=== PATIENT | female | born 1945 | race Caucasian/White ===

== ENCOUNTER 2016-09-25 14:30 | Emergency (ER) | payer MEDICARE ==
[2016-09-25 15:39] VITALS: BP 162/71
--- NOTE | 2016-09-25 16:47 | PHYS DOC ---
Past Medical History Past Medical History: CHF, Hypertension Past Surgical History: No Surgical History Additional Information: Nonsmoker Alcohol Use: None Drug Use: None Adult General Chief Complaint Chief Complaint: LOWER EXT PAIN HPI HPI Patient is a 71 year old female who presents with left lower extremity pain for one week. She states that the pain is constant. It is worse with activity, including walking, climbing stairs, getting in and out of bed, or any out of her car. She denies any alleviating factors. She denies any injury to the leg. She has not noted any swelling or redness to the leg. She has tried applying icy hot without improvement in her pain. She has not taken any pain medications at home. She has a history of hypertension and CHF for which she sees Dr. Wihte. She does not have a PCP. Review of Systems Review of Systems Constitutional: Denies fever or chills. [] Respiratory: Denies cough or shortness of breath. [] Cardiovascular: Denies chest pain, palpitations or edema. [] Musculoskeletal: Denies back pain or joint pain. Reports left calf pain. Integument: Denies rash or skin lesions. Denies erythema or warmth of the left lower extremity. Neurologic: Denies focal weakness or sensory changes. [] Allergies Allergies Allergies Coded Allergies Type Severity Reaction Last Updated Verified No Known Drug Allergies 02/07/14 No Physical Exam Physical Exam Constitutional: Well developed, well nourished, no acute distress, non-toxic appearance. [] HENT: Normocephalic, atraumatic, oropharynx moist. [] Eyes: PERRLA, EOMI, conjunctiva normal, no discharge. [] Skin: Warm, dry, no erythema, no rash. There are no external signs of injury. There is no erythema or warmth of the left lower extremity. Extremities: Left posterior calf tenderness, ROM intact, no edema. 2+ DP and PT pulses. Less than 2 second capillary refill in the toes. Light touch sensation intact. There is no tenderness or pain with range of motion of the right ankle or knee. Neurologic: Alert and oriented X 3, normal motor function, normal sensory function, no focal deficits noted. [] Psychologic: Affect normal, judgement normal, mood normal. [] EKG EKG [] Radiology/Procedures Radiology/Procedures REASON: atruamatic left calf pain x1 week PROCEDURE: VENOUS LOWER EXTREMITY LEFT Exam performed: Left lower extremity venous Doppler. Clinical Indication: Left leg pain Date of Service:09/15/16 Comparison : None available Discussion: Multiple longitudinal and transverse high resolution real-time images of the venous system of left lower extremity were obtained with color and Doppler sampling and spectral analysis. The common femoral, superficial femoral, popliteal and proximal calf veins are all patent and demonstrate normal flow and compressibility. Normal respiratory phasicity and augmentation is present. Impression: Normal color duplex ultrasound of the venous system of left lower extremity. Course & Med Decision Making Course & Med Decision Making Pertinent Labs and Imaging studies reviewed. (See chart for details) Patient is a 71-year-old female who presents with left lower extremity pain without injury for one week. On exam, there is no swelling, erythema, or warmth. There is no bony or joint tenderness. She is neurovascularly intact. Ultrasound does not show any DVT. The patient is discharged home with prescription for naproxen. She is instructed to follow-up with orthopedics if the pain continues. Return precautions were discussed. She verbalizes understanding and agrees with plan. Dragon Disclaimer Dragon Disclaimer This electronic medical record was generated, in whole or in part, using a voice recognition dictation system. Departure Departure Impression: Primary Impression: Lower extremity pain, posterior Disposition: 01 HOME, SELF-CARE Condition: STABLE Referrals: PEÑA DOUGHERTY II, MD Patient Instructions: Leg Cramps Additional Instructions: Your ultrasound today did not show any blood clots. Please take the prescribed medication as directed to help with your pain. Please follow up with the orthopedic doctor listed below if your pain continues. Return to the emergency department if you have increased pain, swelling, redness , or warmth of the leg, shortness of breath, chest pain, or other new or concerning symptoms. Scripts Naproxen (Naprosyn)500 Mg Tablet1 Tab PO BID #20 TAB Prov:LESLIE MEDLEY 09/25/16 Problem Qualifiers Primary Impression: Lower extremity pain, posterior Laterality: left Qualified Code: M79.605 - Pain in left leg LESLIE MEDLEY Sep 25, 2016 16:47
--- NOTE | 2016-09-25 16:51 | RAD ---
Exam performed: Left lower extremity venous Doppler. Clinical Indication: Left leg pain Date of Service:09/15/16 Comparison : None available Discussion: Multiple longitudinal and transverse high resolution real-time images of the venous system of left lower extremity were obtained with color and Doppler sampling and spectral analysis. The common femoral, superficial femoral, popliteal and proximal calf veins are all patent and demonstrate normal flow and compressibility. Normal respiratory phasicity and augmentation is present. Impression: Normal color duplex ultrasound of the venous system of left lower extremity.
[2016-09-25] MEDS ORDERED: NAPR500T PO (17:11)
== END 2016-09-25 17:18 | disposition home or self-care (01) ==
LOC: ER 14:30
DX: M79.662 Pain in left lower leg (principal); I11.0 Hypertensive heart disease with heart failure; I50.9 Heart failure, unspecified
CPT/HCPCS: 93971; 99284-25

== ENCOUNTER → 2017-02-08 | Outpatient (CLI) | payer MEDICARE ==
[2016-09-30 17:20] VITALS: BP 149/71
[~2017-02-08] MED LIST: HYDR-2758 PO; NAPR500T PO
--- NOTE | 2017-02-08 11:21 | CARD ---
APPROVED REPORT EXAM: Two-dimensional and M-mode echocardiogram with Doppler and color Doppler. Other Information Quality : GoodHR: 96bpm Rhythm : Atrial Fibrillation INDICATION Atrial Fibrillation RISK FACTORS Hypertension 2D DIMENSIONS RVDd2.4 (2.9-3.5cm)Left Atrium(2D)4.3 (1.6-4.0cm) IVSd0.8 (0.7-1.1cm)Aortic Root(2D)2.6 (2.0-3.7cm) LVDd3.8 (3.9-5.9cm)LVOT Diameter2.1 (1.8-2.4cm) PWd0.9 (0.7-1.1cm)LVDs2.8 (2.5-4.0cm) FS (%) 26.8 %SV33.3 ml LVEF(%)53.1 (>50%) Aortic Valve AoV Peak Jb.113.4cm/sAoV VTI23.4cm AO Peak GR.5.1mmHgLVOT Peak Jb.110.1cm/s AO Mean GR.3mmHgAVA (VMAX)3.43cm2 Mitral Valve MV E Peak Gr.5mmHgMV E Mean Gr.3mmHg Pulmonary Valve PV Peak Wogczwua969.6cm/s Tricuspid Valve TR P. Lulyuerb409ze/sTR Peak Gr.44mmHg Pulmonary Vein S1 Xzeldibq73.5cm/s LEFT VENTRICLE The left ventricle is normal size. There is normal left ventricular wall thickness. The left ventricu lar systolic function is normal. The Ejection Fraction is 55%. There is normal LV segmental wall carmencita on. Atrial fibrillation noted, unable to adequately assess left ventricular diastolic function. RIGHT VENTRICLE The right ventricle is normal size. There is normal right ventricular wall thickness. The right ventr icular systolic function is normal. ATRIA The left atrium is moderately dilated. The right atrium is mildly dilated. The interatrial septum is intact with no evidence for an atrial septal defect or patent foramen ovale as noted on 2-D or Dopple r imaging. AORTIC VALVE The aortic valve is mildly sclerotic. The aortic valve is trileaflet. Doppler and Color Flow revealed no significant aortic regurgitation. There is no significant aortic valvular stenosis. MITRAL VALVE Mitral annular calcification is mild. The mitral valve leaflets are thickened. There is no evidence o f mitral valve prolapse. There is no mitral valve stenosis. Doppler and Color Flow revealed mild mitr al regurgitation. TRICUSPID VALVE Doppler and Color Flow revealed moderate tricuspid regurgitation. The pulmonary artery systolic press ure is estimated at 47 mmHg. There is moderate pulmonary hypertension. PULMONIC VALVE Doppler and Color Flow revealed no pulmonic valvular regurgitation. There is no pulmonic valvular randolph nosis. GREAT VESSELS The aortic root is normal in size. The ascending aorta is normal in size. The pulmonary artery is nor mal. The IVC is normal in size and collapses >50% with inspiration. PERICARDIAL EFFUSION There is no evidence of significant pericardial effusion. Critical Notification Critical Value: No <Conclusion> The left ventricular systolic function is normal. The Ejection Fraction is 55%. There is normal LV segmental wall motion. The left atrium is moderately dilated. Mild mitral regurgitation. Moderate tricuspid regurgitation. The pulmonary artery systolic pressure is estimated at 47 mmHg. There is moderate pulmonary hypertension. There is no evidence of significant pericardial effusion.
== END | disposition home or self-care (01) ==
LOC: ECHO 08:40
PROVIDERS: ATTEND Internal Medicine Cardiovascular Disease
DX: I48.91 Unspecified atrial fibrillation (principal); I08.1 Rheumatic disorders of both mitral and tricuspid valves; I27.2 Other secondary pulmonary hypertension; I10 Essential (primary) hypertension
CPT/HCPCS: 93306

== ENCOUNTER → 2017-03-16 | Outpatient (CLI) | payer MEDICARE ==
[2016-09-30 17:20] VITALS: BP 149/71
--- NOTE | 2017-03-16 13:54 | RAD ---
DATE: 03/16/2017 EXAM: DIGITAL SCREEN BILAT W/CAD HISTORY: Screening COMPARISON: One year earlier This study was interpreted with the benefit of Computerized Aided Detection (CAD). FINDINGS: Breast Density: SCATTERED The breast parenchyma shows scattered fibroglandular densities. Breast parenchyma level B. There has not been a significant change in the appearance of the breasts compared to the previous exam. Vascular calcification is noted IMPRESSION: Benign findings BI-RADS CATEGORY: 2 BENIGN FINDING(S) RECOMMENDED FOLLOW-UP: 12M 12 MONTH FOLLOW-UP PQRS compliance statement: Patient information was entered into a reminder system with a target due date 03/16/2018 for the next mammogram. Mammography is a sensitive method for finding small breast cancers, but it does not detect them all and is not a substitute for careful clinical examination. A negative mammogram does not negate a clinically suspicious finding and should not result in delay in biopsying a clinically suspicious abnormality. "Our facility is accredited by the [employer] Mammography Program."
== END | disposition home or self-care (01) ==
LOC: MAMMO 08:00
PROVIDERS: ATTEND Family Medicine
DX: Z12.31 Encounter for screening mammogram for malignant neoplasm of breast (principal)
CPT/HCPCS: G0202; 77067

== ENCOUNTER 2017-03-30 09:51 | Day surgery (SDC) | payer MEDICARE ==
[~2017-03-30 09:51] MED LIST changes: +HYDROmorphone 2 MG/ML VIAL IV PRN; +IV RINGERS,LACTATED 1000ML 1,000 ML IV SCH; +LIDOCAINE 1% 1 ML SYRINGE. ID PRN; +MORPHINE SULFATE 2 MG/ML DISP.SYRIN. IV PRN; +ONDANSETRON PF 4 MG/2 ML VIAL. IV PRN; +PROCHLORPERAZINE 10 MG/2 ML VIAL. IV PRN; +fentaNYL PF VIAL 100 MCG/2 ML VIAL IV PRN
[2017-03-30] MEDS ORDERED: POTA10TA5 PO (10:37)
[2017-03-30] MEDS ORDERED: APIX5TAB PO (10:37)
[2017-03-30] MEDS ORDERED: DILT120C71 PO (10:37)
[2017-03-30] MEDS ORDERED: LOSA25TA4 PO (10:37)
--- NOTE | 2017-03-30 10:41 | EKG ---
[facility] [address] [place] [address] Test Date: 2017-03-30 Test Time: 10:43:29 Pat Name: GILDA CHANDLER Department: Room: Gender: F Dining Server: GREG : 1945 Requested By: DAMASO LOPES Order Number: [id number] Reading MD: Marco A Rodriguez Measurements Intervals [place] Rate: 118 P: 90 KS: 108 QRS: 78 QRSD: 104 T: 107 QT: 356 QTc: 501 Interpretive Statements SINUS TACHYCARDIA INCOMPLETE RIGHT BUNDLE BRANCH BLOCK T ABNORMALITY IN INFERIOR LEADS ABNORMAL ECG RI6.01 Compared to ECG 12/26/2012 14:46:22 T-wave abnormality now present Sinus rhythm no longer present Prolonged QT interval no longer present Electronically Signed On 03-30-2017 16:52:33 CDT by Marco A Rodriguez
[2017-03-30] MEDS ORDERED: PROPOFOL 20 ML IV ONE (12:25)
[2017-03-30 13:05] VITALS: BP 152/81
--- NOTE | 2017-03-30 13:18 | EKG ---
[facility] [address] [place] [address] Test Date: 2017-03-30 Test Time: 12:54:50 Pat Name: GILDA CHANDLER Department: Room: Gender: F Senior Strategy Manager: SANJEEV : 1945 Requested By: MARKELL REYNOLDS Order Number: [id number] Reading MD: Measurements Intervals [place] Rate: 82 P: 68 KS: 156 QRS: 79 QRSD: 98 T: 73 QT: 406 QTc: 478 Interpretive Statements SINUS RHYTHM QRS(T) CONTOUR ABNORMALITY CONSIDER INFERIOR MYOCARDIAL DAMAGE PROLONGED QT POSSIBLY ABNORMAL ECG RI6.01 No previous ECG available for comparison
--- NOTE | 2017-03-30 16:18 | PDOC4 ---
Operative Note Operative Note Procedure. Cardioversion. The patient is a pleasant 72-year-old female who was found to be in atrial fibrillation approximately 6 weeks ago. She was started on anticoagulation and scheduled for outpatient cardioversion. Medication compliance including greater than 4 weeks of anticoagulation were confirmed with the patient. Risks and benefits of the procedure were discussed with the patient and she agreed to proceed. The anesthesiology service provided appropriate sedation. The patient was cardioverted from atrial fib/flutter to normal sinus rhythm with one 200 J synchronized discharge. She awoke normally from her sedation. The procedure was discussed with the patient and her family. She will be continued on present medications including anticoagulation and followed up in the office in 3-4 weeks. Conclusions. Successful cardioversion of atrial fibrillation/flutter to normal sinus rhythm. MARKELL REYNOLDS MD Mar 30, 2017 16:18
== END 2017-03-30 13:23 | disposition home or self-care (01) ==
LOC: SURG 09:51
PROVIDERS: ATTEND Internal Medicine Cardiovascular Disease
DX: I48.91 Unspecified atrial fibrillation (principal); I10 Essential (primary) hypertension; F32.9 Major depressive disorder, single episode, unspecified; E03.9 Hypothyroidism, unspecified; Z90.49 Acquired absence of other specified parts of digestive tract; Z86.39 Personal history of other endocrine, nutritional and metabolic disease
CPT/HCPCS: 92960; 93005; J2704

== ENCOUNTER → 2018-03-06 | Outpatient (CLI) | payer MEDICARE | END | disposition home or self-care (01) | LOC: MAMMO 12:48 | DX: Z12.31 Encounter for screening mammogram for malignant neoplasm of breast (principal) | CPT/HCPCS: 77063; 77067 ==

== ENCOUNTER 2018-06-07 08:46 | Emergency (ER) | payer MEDICARE ==
[~2018-06-07] VITALS: Ht 170.2 cm; Wt 91.6 kg
[~2018-06-07 08:46] MED LIST changes: +APIX5TAB PO; +DILT120C71 PO; -HYDROmorphone 2 MG/ML VIAL IV PRN; -IV RINGERS,LACTATED 1000ML 1,000 ML IV SCH; -LIDOCAINE 1% 1 ML SYRINGE. ID PRN; +LOSA25TA5 PO; -MORPHINE SULFATE 2 MG/ML DISP.SYRIN. IV PRN; +NAPR-683 PO; -NAPR500T PO; -ONDANSETRON PF 4 MG/2 ML VIAL. IV PRN; +POTA10TA12 PO; -PROCHLORPERAZINE 10 MG/2 ML VIAL. IV PRN; -fentaNYL PF VIAL 100 MCG/2 ML VIAL IV PRN
[2018-06-07 09:19] VITALS: BP 163/81
[2018-06-07] MEDS ORDERED: FAMOTIDINE 20 MG TABLET. PO ONE (09:45)
--- NOTE | 2018-06-07 10:04 | PHYS DOC ---
Past Medical History Past Medical History: A-Fib, CHF, Hypertension Past Surgical History: Other Additional Past Surgical Histo: Lt breast lumpectomy Alcohol Use: None Drug Use: None Adult General Chief Complaint Chief Complaint: EYE PROBLEMS HPI HPI 73-year-old female presents to ER with complaints of swelling to her left upper eyelid which she woke up with this morning. Patient denies any known injury. Patient denies any eye pain, eye drainage, eye redness, or change in vision. Patient reports she wears corrective glasses which she left home this morning. She denies any other sxs including sore throat, sinus drainage, earache, fever/ chills, or cough. She denies taking any allergy or antihistamine medications prior to arrival. Staff reported they did obtain vision acuity however patient reports her vision is blurred when she does not have her glasses on with no acute changes currently. Review of Systems Review of Systems Constitutional: Denies fever or chills [] Eyes: Denies change in visual acuity, redness, or eye pain. Reports left upper eyelid swelling denying drainage or photosensitivity HENT: Denies nasal congestion or sore throat [] Respiratory: Denies cough or shortness of breath [] Cardiovascular: No additional information not addressed in HPI [] GI: Denies abdominal pain, nausea, vomiting : Denies dysuria or hematuria [] Musculoskeletal: Denies back/neck pain or joint pain [] Integument: Denies rash or skin lesions. Reports swelling left upper eyelid Neurologic: Denies headache, focal weakness or sensory changes [] All other systems were reviewed and found to be within normal limits, except as documented in this note. Allergies Allergies Allergies Coded Allergies Type Severity Reaction Last Updated Verified No Known Drug Allergies 03/30/17 No Physical Exam Physical Exam Constitutional: Well developed, well nourished, no acute distress, non-toxic appearance. [] HENT: Normocephalic, atraumatic, bilateral ears normal, mucous membranes pink/ moist, no oral exudates, nose normal. [] Eyes: 3mm PERRLA, EOMI- no pain with eye movement, no nystagmus, conjunctiva normal, no discharge.Swelling to lt upper/inner eyelid with no erythema/ drainage. Sclera clear bilat. No tenderness on eyelid palp. Neck: Normal range of motion, no tenderness, supple, no gross adenopathy Cardiovascular: Heart rate 94 Lungs & Thorax: Resp. equal/nonlabored Abdomen: soft, no tenderness Skin: Warm, dry, no erythema, no rash. [] Back: No tenderness, full ROM Extremities: No tenderness, no cyanosis, no clubbing, ROM intact, no edema. [] Neurologic: Alert and oriented X 3, normal motor function, normal sensory function, no focal deficits noted. [] Psychologic: Affect normal, judgement normal, mood normal. [] Current Patient Data Vital Signs Vital Signs Date Time Temp Pulse Resp B/P (MAP) Pulse Ox O2 Delivery O2 Flow Rate FiO2 06/07/18 09:19 97.5 94 20 163/81 (108) 96 Room Air 97.5 EKG EKG [] Radiology/Procedures Radiology/Procedures [] Course & Med Decision Making Course & Med Decision Making [] Dragon Disclaimer Dragon Disclaimer This electronic medical record was generated, in whole or in part, using a voice recognition dictation system. Departure Departure Impression: Primary Impression: Swelling of eyelid Disposition: HOME, SELF-CARE Condition: STABLE Referrals: GALLITO LEONARDO MD (PCP) Patient Instructions: Allergies, Generic Additional Instructions: You can use cool compress to left eyelid for swelling- apply every 3-4 hours for 20-30 minutes at a time. Monitor eyelid for worsening symptoms. Follow up with primary doctor in next 2-3 days if symptoms persist or with any concerns. You can try over the counter medications for allergies- zyrtec, benedryl, claritin, etc. as directed on container if needed. Problem Qualifiers Primary Impression: Swelling of eyelid MICHELLE GARCIA APRN Jun 07, 2018 10:04
== END 2018-06-07 10:23 | disposition home or self-care (01) ==
LOC: ER 08:46
DX: H02.89 Other specified disorders of eyelid (principal); I48.91 Unspecified atrial fibrillation; I11.0 Hypertensive heart disease with heart failure; I50.9 Heart failure, unspecified
CPT/HCPCS: 99282

== ENCOUNTER → 2019-01-30 | Outpatient (CLI) | payer MEDICARE ==
[~2019-01-30] MED LIST changes: -HYDR-2758 PO; +HYDR-2761 PO; -LOSA25TA5 PO; +LOSA25TA54 PO
--- NOTE | 2019-01-30 09:49 | CARD ---
MR#: [id number] Date of Study: 01/30/2019 Ordering Physician: DAMASO LOPES, Referring Physician: DAMASO LOPES Tech: Jennifer Early LORNA APPROVED REPORT EXAM: Two-dimensional and M-mode echocardiogram with Doppler and color Doppler. Other Information Quality : Technically LimitedHR: 105bpm Rhythm : Atrial FibrillationTechnically limited study due to body habitus. INDICATION Atrial Fibrillation 2D DIMENSIONS RVDd3.6 (2.9-3.5cm)Left Atrium(2D)4.2 (1.6-4.0cm) IVSd0.9 (0.7-1.1cm)Aortic Root(2D)2.9 (2.0-3.7cm) LVDd3.6 (3.9-5.9cm)LVOT Diameter1.9 (1.8-2.4cm) PWd0.8 (0.7-1.1cm)LVDs2.6 (2.5-4.0cm) FS (%) 26.9 %SV28.8 ml LVEF(%)53.4 (>50%) Aortic Valve AoV Peak Jb.119.2cm/sAoV VTI21.2cm AO Peak GR.5.7mmHgLVOT Peak Jb.78.7cm/s AO Mean GR.3mmHgAVA (VMAX)1.79cm2 ASH (VTI)1.80cm2 Mitral Valve MV E Qpdwpuno527.7cm/sMV DECEL VOCY683zn MV A Qqmumkhq77.6cm/sE/A Ratio4.8 Pulmonary Valve PV Peak Kfzhbwda76.8cm/s Tricuspid Valve TR P. Jadmixgt053gg/sRAP FPVUQWNB6ekXl TR Peak Gr.29kbKrBDYS31sqZn LEFT VENTRICLE The left ventricle is normal size. There is normal left ventricular wall thickness. The left ventricu lar systolic function is normal and the ejection fraction is within normal range. The Ejection Fracti on is 55%. There is grossly normal LV segmental wall motion. Technically limited images. Not well vis ualized. Transmitral Doppler flow pattern is abnormal. RIGHT VENTRICLE The right ventricle is mild to moderately dilated. There is normal right ventricular wall thickness. Systolic function is mildly reduced. ATRIA The left atrium is moderately dilated. The right atrium is severely dilated. The interatrial septum i s intact with no evidence for an atrial septal defect or patent foramen ovale as noted on 2-D or Dopp ler imaging. AORTIC VALVE The aortic valve is not well visualized. Doppler and Color Flow revealed no significant aortic regurg itation. There is no significant aortic valvular stenosis. MITRAL VALVE The mitral valve is normal in structure and function. There is no evidence of mitral valve prolapse. There is no mitral valve stenosis. Doppler and Color-flow revealed trace mitral regurgitation. TRICUSPID VALVE The tricuspid valve is normal in structure and function. Doppler and Color Flow revealed mild tricusp id regurgitation. There is mild pulmonary hypertension. The PA pressure was estimated at 38 mmHg. The re is no tricuspid valve prolapse or vegetation. There is no tricuspid valve stenosis. PULMONIC VALVE The pulmonic valve is not well visualized. GREAT VESSELS The aortic root is normal in size. The ascending aorta is normal in size. The IVC is normal in size a nd collapses >50% with inspiration. PERICARDIAL EFFUSION There is no evidence of significant pericardial effusion. Critical Notification Critical Value: No <Conclusion> The left ventricular systolic function is normal and the ejection fraction is within normal range. Th e Ejection Fraction is 55%. There is grossly normal LV segmental wall motion. Technically limited images. Not well visualized. The right ventricle is mild to moderately dilated. Doppler and Color Flow revealed mild tricuspid regurgitation. There is mild pulmonary hypertension. T he PA pressure was estimated at 38 mmHg. Moderate to severe biatrial enlargement. Signed by : Jabari Hoyos, Electronically Approved : 01/30/2019 09:49:28
== END | disposition home or self-care (01) ==
LOC: ECHO 08:38
PROVIDERS: ATTEND Internal Medicine Cardiovascular Disease
DX: I36.1 Nonrheumatic tricuspid (valve) insufficiency (principal); I27.20 Pulmonary hypertension, unspecified; I48.91 Unspecified atrial fibrillation; R00.8 Other abnormalities of heart beat
CPT/HCPCS: 93306

== ENCOUNTER → 2019-03-10 | Outpatient (CLI) | payer MEDICARE ==
--- NOTE | 2019-03-10 09:44 | RAD ---
DATE: 03/10/2019. EXAM: DIGITAL SCREEN BILAT W/CAD HISTORY: Routine screening. COMPARISON: Previous mammogram from 2018 and 2017. This study was interpreted with the benefit of Computerized Aided Detection (CAD). FINDINGS: Breast Density: SCATTERED The breast parenchyma shows scattered fibroglandular densities. Breast parenchyma level B. The skin and nipples are within normal limits. No suspicious calcifications, spiculated mass or area of architectural distortion. Bilateral scattered benign-appearing calcifications are again seen. IMPRESSION: No mammographic evidence of malignancy. Stable exam. BI-RADS CATEGORY: 2 BENIGN FINDING(S) RECOMMENDED FOLLOW-UP: 12M 12 MONTH FOLLOW-UP PQRS compliance statement: Patient information was entered into a reminder system with a target due date for the next mammogram. Mammography is a sensitive method for finding small breast cancers, but it does not detect them all and is not a substitute for careful clinical examination. A negative mammogram does not negate a clinically suspicious finding and should not result in delay in biopsying a clinically suspicious abnormality. "Our facility is accredited by the [employer] Mammography Program."
== END | disposition home or self-care (01) ==
LOC: MAMMO 08:34
PROVIDERS: ATTEND Family Medicine
DX: Z12.31 Encounter for screening mammogram for malignant neoplasm of breast (principal); N64.89 Other specified disorders of breast
CPT/HCPCS: 77067

== ENCOUNTER 2020-02-04 09:25 | Emergency (ER) | payer MEDICARE ==
[~2020-02-04] VITALS: Ht 170.2 cm; Wt 100.0 kg
[~2020-02-04 09:25] MED LIST changes: -REGADENOSON 0.4 MG/5 ML DISP.SYRIN. IV ONE
--- NOTE | 2020-02-04 09:37 | PHYS DOC ---
Past Medical History Past Medical History: A-Fib, CHF, Hypertension Past Surgical History: Other Additional Past Surgical Histo: Lt breast lumpectomy Smoking Status: Never Smoker Alcohol Use: None Drug Use: None General Adult EDM: Chief Complaint: MECHANICAL FALL HPI: HPI: 74-year-old female with significant history of atrial fibrillation on Pradaxa, who presents for evaluation of mechanical fall and closed head injury that occurred just prior to arrival. The patient was walking out of the bathroom here at [facility], undergoing stress test and echocardiogram, when she reportedly lost her footing and struck her head against the doorway. No LOC. No other areas of pain noted. Review of Systems: Review of Systems: Gen: No fever, chills. Eyes: No blurred vision, diplopia. ENT: No facial pain or epistaxis. CV: No CP, syncope. Resp. No SOB, cough. GI: No abd pain, N/V. : No perineal pain. Neuro: No dizziness, weakness. Reported head injury. MSK: No myalgia, arthralgia, back pain. Skin: No acute rash or lesion. Heart Score: Risk Factors: Risk Factors: DM, Current or recent (<one month) smoker, HTN, HLP, family history of CAD, obesity. Risk Scores: Score 0 - 3: 2.5% MACE over next 6 weeks - Discharge Home Score 4 - 6: 20.3% MACE over next 6 weeks - Admit for Clinical Observation Score 7 - 10: 72.7% MACE over next 6 weeks - Early Invasive Strategies Allergies: Allergies: Allergies Coded Allergies Type Severity Reaction Last Updated Verified No Known Drug Allergies 03/30/17 No Physical Exam: PE: Gen: NAD. Head: NC/AT. Eyes: No scleral icterus. No conjunctival injection. PERRL. EOMI. ENT: MMM. Posterior OP clear. Neck: Supple. NT. CV: RRR. Peripheral pulses intact. Chest: No anterior chest wall tenderness. No crepitus. Symmetric chest rise. Resp: CTAB. Abd: Soft. NT. ND. MSK: No peripheral cyanosis. No edema. Extremities atraumatic x4. Back: No midline tenderness or step-off. Neuro: A&Ox3. Strength & sensation grossly intact throughout. No dysmetria. GCS 15. Skin. Warm. Dry. Psych: Appropriate mood & affect. EKG: EKG: EKG at 0929. Sinus rhythm. Heart rate 96. Normal intervals. No STEMI. Interpreted by me. Radiology/Procedures: Radiology/Procedures: PROCEDURE: CT HEAD WO CONTRAST CT Head W/O Contrast: History: Reason: head injury / Spl. Instructions: / History: Comparison: none Axial images were obtained without contrast. There is mild diffuse atrophy. There is no mass effect, extraaxial fluid collections or hydrocephalus. There is no gross bleed. Minimal, patchy periventricular and subcortical white matter hypoattenuation is seen. There is no focal loss of larry-white matter distinction to suggest acute ischemia, i.e. stroke. There is small scalp hematoma anteriorly on the left. Impression: No acute intracranial findings. End impression PQRS Compliance Statement: One or more of the following individualized dose reduction techniques were utilized for this examination: 1. Automated exposure control 2. Adjustment of the mA and/or kV according to patient size 3. Use of iterative reconstruction technique Electronically signed by: Cruz Jones III, MD (02/04/2020 9:54 AM) [id number] Course & Med Decision Making: Course & Med Decision Making Pertinent Labs and Imaging studies reviewed. (See chart for details) In summary, 74F p/w CHI s/p mechanical fall. No LOC. On pradaxa. No outward signs of injury. Unremarkable trauma survey. CTH obtained, and neg. Will DC back to nuclear medicine for her scheduled studies. Return precautions given. Irineo Disclaimer: Irineo Disclaimer: This electronic medical record was generated, in whole or in part, using a voice recognition dictation system. Departure Departure Impression: Primary Impression: Closed head injury Disposition: 01 HOME, SELF-CARE Condition: STABLE Referrals: SIERRA RIVERA MD (PCP) Patient Instructions: Head Injury, Adult, [id number] Justicifation of Admission Dx: Justifications for Admission: Justification of Admission Dx: N/A RADHA CAMPUZANO DO Feb 04, 2020 09:37
--- NOTE | 2020-02-04 09:57 | RAD ---
CT Head W/O Contrast: History: Reason: head injury / Spl. Instructions: / History: Comparison: none Axial images were obtained without contrast. There is mild diffuse atrophy. There is no mass effect, extraaxial fluid collections or hydrocephalus. There is no gross bleed. Minimal, patchy periventricular and subcortical white matter hypoattenuation is seen. There is no focal loss of larry-white matter distinction to suggest acute ischemia, i.e. stroke. There is small scalp hematoma anteriorly on the left. Impression: No acute intracranial findings. End impression PQRS Compliance Statement: One or more of the following individualized dose reduction techniques were utilized for this examination: 1. Automated exposure control 2. Adjustment of the mA and/or kV according to patient size 3. Use of iterative reconstruction technique Electronically signed by: Cruz Jones III, MD (02/04/2020 9:54 AM) [id number]
[2020-02-04 10:08] VITALS: BP 185/114
--- NOTE | 2020-02-04 13:21 | EKG ---
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 Electronically Signed On 02-06-2020 16:23:07 CDT by New Lai
== END 2020-02-04 10:10 | disposition home or self-care (01) ==
LOC: ER 09:25
DX: S09.90XA Unspecified injury of head, initial encounter (principal); R51 Headache; I11.0 Hypertensive heart disease with heart failure; I50.9 Heart failure, unspecified; I48.91 Unspecified atrial fibrillation; W18.09XA Striking against other object with subsequent fall, initial encounter; Y93.01 Activity, walking, marching and hiking; Y92.231 Patient bathroom in hospital as the place of occurrence of the external cause; Y99.8 Other external cause status
CPT/HCPCS: 70450; 93005; 99284-25

== ENCOUNTER → 2020-02-04 | Outpatient (CLI) | payer MEDICARE ==
[~2020-02-04] MED LIST changes: +REGADENOSON 0.4 MG/5 ML DISP.SYRIN. IV ONE
--- NOTE | 2020-02-04 10:17 | CARD ---
MR#: [id number] Date of Study: 02/04/2020 Ordering Physician: DAMASO LOPES, Referring Physician: DAMASO LOPES Tech: Dianne Torres RDCS APPROVED REPORT EXAM: Two-dimensional and M-mode echocardiogram with Doppler and color Doppler. Other Information Quality : Technically Limited Rhythm : Atrial FibrillationTechnically limited study due to body habitus. INDICATION Atrial Fibrillation 2D DIMENSIONS Left Atrium(2D)3.4 (1.6-4.0cm)IVSd1.1 (0.7-1.1cm) Aortic Root(2D)2.3 (2.0-3.7cm)LVDd3.6 (3.9-5.9cm) LVOT Diameter2.0 (1.8-2.4cm)PWd1.2 (0.7-1.1cm) LVDs3.0 (2.5-4.0cm)FS (%) 27.0 % SV17.2 mlLVEF(%)55.0 (>50%) Aortic Valve AoV Peak Jb.101.9cm/sAoV VTI21.4cm AO Peak GR.4.1mmHgLVOT Peak Jb.93.6cm/s LVOT VTI 19.99cmAO Mean GR.2mmHg ASH (VMAX)2.07xc8BAM (VTI)2.96cm2 Mitral Valve MV E Aztrcqeb019.5cm/sMV DECEL SLVH514ei MV ATZ72kzITP (PHT)4.71cm2 Tricuspid Valve TR P. Uongcucu815vd/sRAP VUHOHYTX6kwAd TR Peak Gr.26dxCnODLR42oxDt Pulmonary Vein S1 Gssejedx48.5cm/sD2 Walwnenf17.9cm/s LEFT VENTRICLE The left ventricle is normal size. There is mild concentric left ventricular hypertrophy. The left ve ntricular systolic function is normal. The Ejection Fraction is 55-60%. There is normal LV segmental wall motion. RIGHT VENTRICLE The right ventricle is normal size. The right ventricular systolic function is normal. ATRIA The left atrium size is normal. The right atrium size is normal. The interatrial septum is intact wit h no evidence for an atrial septal defect or patent foramen ovale as noted on 2-D or Doppler imaging. AORTIC VALVE The aortic valve is not well visualized but appears to be functioning normally by Doppler interrogati on. Doppler and Color Flow revealed no significant aortic regurgitation. There is no significant aort ic valvular stenosis. MITRAL VALVE The mitral valve is normal in structure and function. Mitral annular calcification is mild. There is no evidence of mitral valve prolapse. There is no mitral valve stenosis. Doppler and Color Flow revea led no mitral valve regurgitation noted. TRICUSPID VALVE The tricuspid valve is normal in structure and function. Doppler and Color Flow revealed trace to mil d tricuspid regurgitation. There is mild to moderate pulmonary hypertension. The PA pressure was rey mated at 41 mmHg. There is no tricuspid valve stenosis. PULMONIC VALVE The pulmonic valve is not well visualized. Doppler and Color Flow revealed no pulmonic valvular regur gitation. There is no pulmonic valvular stenosis. GREAT VESSELS The aortic root is normal in size. The ascending aorta is not well seen. The IVC is normal in size an d collapses >50% with inspiration. PERICARDIAL EFFUSION There is no evidence of significant pericardial effusion. Critical Notification Critical Value: No <Conclusion> The left ventricular systolic function is normal. The Ejection Fraction is 55-60%. There is normal LV segmental wall motion. Trace to mild tricuspid regurgitation. There is mild to moderate pulmonary hypertension. The PA pressure was estimated at 41 mmHg. There is no evidence of significant pericardial effusion. Signed by : Damaso Lopes, Electronically Approved : 02/04/2020 10:17:00
--- NOTE | 2020-02-04 13:04 | RAD ---
MR#: [id number] Date of Study: 02/04/2020 Ordering Physician: DAMASO LOPES Referring Physician: ALVARO ESCALONA Tech: RT Todd (Jennifer) (N) APPROVED REPORT Test Type: Pharmacological Stress Nurse/Tech: Esther Cortez R.N. Test Indications: afib Cardiac History: afib Medications: See Electronic Medical Record Medical History: See Electronic Medical Record Resting ECG: afib/flutter w/ very slight ST depression in lead II Resting Heart Rate: 96 bpm Resting Blood Pressure: 175/69mmHg Pretest Chest Pain: No chest pain Nurse/Tech Notes irregular rhythm, lungs CTA Consent: The procedure was explained to the patient in lay terms. Informed consent was witnessed. Pérez eout was entered into [employer]. History and Stress Test performed by CARYN Shepard Pharm. Details Pharmacologic stress testing was performed using 0.4mg per 5ml of regadenoson given intravenously ove r 7-10 seconds. Stress Symptoms SOB POST EXERCISE Reason for Termination: Infusion complete Max HR: 117 bpm Max Blood Pressure: 170/63mmHg Blood Pressure response to exercise: Normal blood pressure response during stress. Heart Rate response to exercise: wnl Chest Pain: No. Arrhythmia: Yes. pt remains in afib ST Change: No. INTERPRETATION Stress EKG Conclusion: The resting EKG shows atrial fibrillation with nonspecific ST-T wave changes. The stress EKG shows no significant ischemic changes from baseline. No EKG evidence of stress-induced ischemia. Imaging Protocol IMAGE PROTOCOL: Rest Tc-99m/stress Tc-99m 1 day Rest: Stress: Viability: Radiopharm.Tc99m VkbwgzwerZz63h Sestamibi Dose11.7mCi 31.4mCi Duration 15min. 10min. Img Date 02/04/2020 02/04/2020 Inj-Img Zhbt83ovv. 60min. Rest Admin Site:IV - Right AntecubitalAdministrator:CARYN Shepard Stress Admin Site: IV - Right AntecubitalAdministrator: CARYN Shepard STRESS DATA End Diast. Vol.66.0mlAv. Heart Rate97.0bpm End Syst. Vol.14.0mlCO Index BSA0.0L/min Myocardial Fcow379.0gEject. Lyojxqli48.0% Stress Rates Pk. Fill Rate6.12EDV/secLVtime Pk. Fill 174.76msec Pk. Empty Rate5.34ESV/secLVtime Pk. Guhay117.94msec 1/3 Pk. Fill0.50EDV/sec Stress Scores Regional WT0.00Summed WT10.00 Regional WM0.00Summed WM2.00 LV Perfusion The stress scans showed a small area of slight thinning of the anterior septal region. The rest scans showed no significant defects. Nuclear imaging shows no clear reversible ischemia or infarct. Wall Motion Left ventricular systolic function is normal with no regional wall motion abnormalities and an ejecti on fraction of greater than 70%. LV Perf. Quant 17 Seg. SSS0.00 17 Seg. SRS1.00 17 Seg. SDS0.00 Stress Defect Extent (% LAD)0.00Rest Defect Extent (% LAD)0.00Rev. Defect Extent (% LAD)0.00 Stress Defect Extent (% LCX) 5.00Rest Defect Extent (% LCX)0.00Rev. Defect Extent (% LCX)1.30 Stress Defect Extent (% RCA)0.00Rest Defect Extent (% RCA)0.00Rev. Defect Extent (% RCA)0.00 Stress Defect Extent (% LUIGI)0.90Rest Defect Extent (% LUIGI)0.00Rev. Defect Extent (% LUIGI)0.20 Conclusion 1. No EKG evidence of stress-induced ischemia. 2. Nuclear imaging shows no clear reversible ischemia or infarct. 3. There is a small area of mild stress thinning in the anterior septal region that is not diagnostic of ischemia. 4. Normal left ventricular systolic function with no regional wall motion abnormalities and an ejecti on fraction greater than 70%. 5. Moderately low risk MPI Lexiscan nuclear stress test. Signed by : New Lai MD Electronically Approved : 02/04/2020 13:04:19
== END ==
LOC: NM 08:01
PROVIDERS: ATTEND Internal Medicine Cardiovascular Disease
DX: I08.1 Rheumatic disorders of both mitral and tricuspid valves (principal); I27.20 Pulmonary hypertension, unspecified; I48.91 Unspecified atrial fibrillation
CPT/HCPCS: 78452; 93017; 93306; A9500; J2785

== ENCOUNTER → 2020-03-11 | Outpatient (CLI) | payer MEDICARE ==
--- NOTE | 2020-03-11 12:29 | RAD ---
INDICATION: 74 years of age asymptomatic female patient presents for screening mammography. TECHNIQUE: Full field craniocaudal and mediolateral oblique images of both breasts were obtained using digital technique with tomosynthesis and also analyzed with computer-aided detection software. COMPARISON: Prior mammographic imaging dating back to 03/10/2019. BREAST COMPOSITION: Category B: There are scattered fibroglandular densities. FINDINGS: Benign calcifications are present. The parenchymal pattern appears stable. No suspicious masses, microcalcifications or architectural distortion is present to suggest malignancy in either breast. The visualized axillae are unremarkable. IMPRESSION: No mammographic evidence of malignancy. RECOMMENDATION: Annual screening mammography is recommended, unless clinically indicated sooner based on symptoms or change in physical exam. BIRADS 2: BENIGN This study was interpreted with the benefit of Computerized Aided Detection (CAD). Patient information is entered into the reminder system with a target due date for the next screening mammogram. Mammography is the most sensitive method for finding small breast cancers, but it does not detect them all and is not a substitute for careful clinical examination. A negative mammogram does not negate a clinically suspicious finding and should not result in delay in biopsying a clinically suspicious abnormality. "Our facility is accredited by the [employer] Mammography Program." Electronically signed by: Chato Richardson MD (03/11/2020 12:26 PM) [id number]
== END | disposition home or self-care (01) ==
LOC: MAMMO 07:58
PROVIDERS: ATTEND Family Medicine
DX: Z12.31 Encounter for screening mammogram for malignant neoplasm of breast (principal); N64.89 Other specified disorders of breast
CPT/HCPCS: 77063; 77067

== ENCOUNTER 2020-10-01 09:56 | Emergency (ER) | payer MEDICARE ==
[~2020-10-01] VITALS: Ht 170.2 cm; Wt 104.5 kg
[2020-10-01] MEDS ORDERED: PRED20TA PO (10:23)
--- NOTE | 2020-10-01 10:25 | PHYS DOC ---
Past Medical History Past Medical History: A-Fib, CHF, Hypertension Past Surgical History: Other Additional Past Surgical Histo: Lt breast lumpectomy Smoking Status: Never Smoker Alcohol Use: None Drug Use: None General Adult EDM: Chief Complaint: SKIN RASH/ABSCESS HPI: HPI: Patient is a 75 year old female presents with report of red rash to face that has been ongoing for the past 2 weeks. Patient reports it seems to be worsening. Denies any fever or chills. Denies known exposure to allergen. Patient denies any use of new medications, soaps, shampoos, or detergents. Denies tongue swelling. Denies difficulty with breathing. Review of Systems: Review of Systems: Constitutional: Denies fever or chills Eyes: Denies redness or eye pain HENT: Denies nasal congestion or sore throat Respiratory: Denies cough or shortness of breath Cardiovascular: Denies chest pain or palpitations GI: Denies abdominal pain, nausea, or vomiting : Denies dysuria or hematuria Musculoskeletal: Denies back pain or joint pain Integument: Reports facial rash; denies pruritus Neurologic: Denies headache, focal weakness or sensory changes Complete systems were reviewed and found to be within normal limits, except as documented in this note. Allergies: Allergies: Allergies Coded Allergies Type Severity Reaction Last Updated Verified No Known Drug Allergies 03/30/17 No Physical Exam: PE: Constitutional: Well developed, well nourished, no acute distress, non-toxic appearance HENT: Normocephalic, atraumatic, tongue and mucosal membranes normal Eyes: Conjunctiva normal, no discharge Neck: Normal range of motion, supple, no stridor Lungs & Thorax: No respiratory distress, equal chest rise and fall Abdomen: Soft, no tenderness Skin: Warm, dry, no erythema, papular rash noted to right face with mild edema Extremities: No tenderness, ROM intact, no edema Neurologic: Alert and oriented X 3, no focal deficits noted Psychologic: Affect normal, judgment normal Current Patient Data: Vital Signs: Vital Signs Date Time Temp Pulse Resp B/P (MAP) Pulse Ox O2 Delivery O2 Flow Rate FiO2 10/01/20 10:01 97.2 95 18 173/90 (117) 97 Room Air 97.2 EKG: EKG: [] Radiology/Procedures: Radiology/Procedures: [] Course & Med Decision Making: Course & Med Decision Making Patient presents with report of red rash to face has been ongoing for the past 2 weeks. Patient reports concern that it has increased in size. Rash appears to be an location of mask. Patient reports she has been wearing some mask that she has not washed recently. Concern for possible contact dermatitis. Patient advised to use Aquaphor skin barrier ointment. Symptomatic treatment prescription also provided with oral steroid. No signs of airway compromise or tongue swelling.\ Patient stable for discharge with outpatient follow-up with PCP. Discussed findings and plan with patient, who acknowledges understanding and agreement. Dragon Disclaimer: Dragon Disclaimer: This electronic medical record was generated, in whole or in part, using a voice recognition dictation system. Departure Departure Impression: Primary Impression: Facial rash Disposition: 01 DC HOME SELF CARE/HOMELESS Condition: STABLE Referrals: SIERRA RIVERA MD (PCP) ANILA GAN MD Patient Instructions: Contact Dermatitis, Ylwq-nv-Qges, Rash, Litl-yf-Tavm Additional Instructions: Use over the counter Aquaphor to protect area of discomfort/rash. Use as directed. Contact your insurance and/or PCP for a referral for dermatology if symptoms persist. Scripts Prednisone (PREDNISONE) 20 Mg Tablet 2 TAB PO DAILY for 5 Days, #10 TAB Prov: CORIE NELSON DO 10/01/20 CORIE NELSON DO Oct 01, 2020 10:25
[2020-10-01 11:00] VITALS: BP 153/78
== END 2020-10-01 11:02 | disposition home or self-care (01) ==
LOC: ER 09:56
DX: R21 Rash and other nonspecific skin eruption (principal); I11.0 Hypertensive heart disease with heart failure; I50.9 Heart failure, unspecified; I48.91 Unspecified atrial fibrillation
CPT/HCPCS: 99283

== ENCOUNTER → 2021-02-10 | Outpatient (CLI) | payer MEDICARE ==
[~2021-02-10] MED LIST changes: +PRED20TA PO; +REGADENOSON 0.4 MG/5 ML DISP.SYRIN. IV ONE
--- NOTE | 2021-02-11 09:47 | CARD ---
MR#: [id number] Date of Study: 02/10/2021 Ordering Physician: DAMASO LOPES, Referring Physician: DAMASO LOPES, Tech: Kasey Johns, [facility] APPROVED REPORT EXAM: Two-dimensional and M-mode echocardiogram with Doppler and color Doppler. Other Information Quality : FairHR: 101bpm Technically limited study due to body habitus. INDICATION Atrial Fibrillation RISK FACTORS Hypertension 2D DIMENSIONS Left Atrium(2D)3.4 (1.6-4.0cm)IVSd1.0 (0.7-1.1cm) Aortic Root(2D)2.8 (2.0-3.7cm)LVDd4.1 (3.9-5.9cm) LVOT Diameter2.0 (1.8-2.4cm)PWd1.1 (0.7-1.1cm) LVDs2.5 (2.5-4.0cm)FS (%) 37.5 % SV49.8 ml Aortic Valve AoV Peak Jb.102.1cm/sAoV VTI19.4cm AO Peak GR.4.2mmHgLVOT Peak Jb.97.3cm/s LVOT VTI 14.19cmAO Mean GR.2mmHg ASH (VMAX)2.30yb2GSJ (VTI)2.23cm2 Mitral Valve MV E Haliuswp689.2cm/sMV DECEL WQGK540lm MV A Qbbbryft743.5cm/sMV BFL43rq E/A Ratio1.1MVA (PHT)3.85cm2 TDI E/Lateral E'6.3E/Medial E'7.6 Pulmonary Valve PV Peak Qsdzxjqw70.1cm/sPV Peak Grad.3mmHg Tricuspid Valve TR P. Daalwwyo923qf/sRAP JWMBZFWW8nhVh TR Peak Gr.38peLyEYRO80bhOr LEFT VENTRICLE The left ventricle is normal size. There is borderline concentric left ventricular hypertrophy. The l eft ventricular systolic function is normal and the ejection fraction is within normal range. The Eje ction Fraction is 55-60%. There is normal LV segmental wall motion. Diastology indeterminent to atria l fibrillation. RIGHT VENTRICLE The right ventricle is mildly dilated. There is normal right ventricular wall thickness. The right ve ntricular systolic function is normal. ATRIA The left atrium is mildly dilated. The right atrium is mildly dilated. The interatrial septum is inta ct with no evidence for an atrial septal defect or patent foramen ovale as noted on 2-D or Doppler im aging. AORTIC VALVE The aortic valve is not well visualized. Doppler and Color Flow revealed no significant aortic regurg itation. There is no significant aortic valvular stenosis. Calculated aortic valve area is 2.53 cm2 w ith maximum pressure gradient of 6 mmHg and mean pressure gradient of 3 mmHg. MITRAL VALVE The mitral valve is normal in structure and function. There is no evidence of mitral valve prolapse. There is no mitral valve stenosis. Doppler and Color-flow revealed trace mitral regurgitation. TRICUSPID VALVE The tricuspid valve is not well visualized. Doppler and Color Flow revealed trace to mild tricuspid r egurgitation with an estimated PAP of 44 mmHg. There is no tricuspid valve stenosis. PULMONIC VALVE The pulmonic valve is not well visualized. GREAT VESSELS The aortic root is normal in size. The IVC is normal in size and collapses >50% with inspiration. PERICARDIAL EFFUSION There is no evidence of significant pericardial effusion. Critical Notification Critical Value: No <Conclusion> The left ventricle is normal size. The left ventricular systolic function is normal and the ejection fraction is within normal range. The Ejection Fraction is 55-60%. There is borderline concentric left ventricular hypertrophy. Doppler and Color Flow revealed no significant aortic regurgitation. There is no significant aortic valvular stenosis. Doppler and Color-flow revealed trace mitral regurgitation. Doppler and Color Flow revealed trace to mild tricuspid regurgitation with an estimated PAP of 44 mmH g. Signed by : New Lai MD Electronically Approved : 02/11/2021 09:46:46
--- NOTE | 2021-02-11 10:23 | RAD ---
MR#: [id number] Date of Study: 02/10/2021 Ordering Physician: DAMASO LOPES, Referring Physician: ALVARO ESCALONA Tech: RT Chi Younger) (N) APPROVED REPORT Test Type: Pharmacological Stress Nurse/Tech: Nichole Shabazz RN Test Indications: atrial fibrillation Cardiac History: A-Fib, HTN Medications: See Electronic Medical Record Medical History: See Electronic Medical Record Resting ECG: Atrial fibrillation Resting Heart Rate: 106 bpm Resting Blood Pressure: 227/95mmHg Pretest Chest Pain: None Nurse/Tech Notes Pt blood pressure elevated. Pt will resume home medications at termination of exam Consent: The procedure was explained to the patient in lay terms. Informed consent was witnessed. Pérez eout was entered into [employer] / ?.??. History and Stress Test performed by RT Todd (R) (N) Pharm. Details Pharmacologic stress testing was performed using 0.4mg per 5ml of regadenoson given intravenously ove r 7-10 seconds. Stress Symptoms No chest pain or symptoms. POST EXERCISE Reason for Termination: Infusion complete Max HR: 119 bpm Max Blood Pressure: 188/87mmHg Blood Pressure response to exercise: Normal blood pressure response during stress. Heart Rate response to exercise: normal response Chest Pain: No. Arrhythmia: Yes. PVC ST Change: No. INTERPRETATION Stress EKG Conclusion: The resting EKG shows atrial fibrillation with nonspecific ST-T wave changes. The stress EKG shows no significant changes from baseline. Abnormal resting EKG but no EKG evidence of stress-induced ischemia. Imaging Protocol IMAGE PROTOCOL: Rest Tc-99m/stress Tc-99m 1 day Rest: Stress: Viability: Radiopharm.Tc99m [id number] Sestamibi Dose10.5mCi 31mCi Duration 15min. 15min. Img Date 02/10/2021 02/10/2021 Inj-Img [id number]. 60min. Rest Admin Site:IV - Left AntecubitalAdministrator:RT Chi Brooks)(N) Stress Admin Site: IV - Left AntecubitalAdministrator: Lucretia Sales, RT (R)(N) STRESS DATA End Diast. Vol.54.0mlLVEDV index BSA25.0ml End Syst. Vol.6.0mlLVESV index BSA3.0ml Myocardial Mass95.0gEject. Jyxabinf32.0% Stress Scores Regional WT0.00Summed WT4.00 Regional WM0.00Summed WM0.00 LV Perfusion The stress scans show a small apical defect. The rest scans show a small apical defect. Nuclear imaging shows a small fixed apical defect suggestive of a technical artifact. Wall Motion Left ventricular systolic function is normal with no regional wall motion abnormalities and an ejecti on fraction of greater than 70%. LV Perf. Quant 17 Seg. SSS3.00 17 Seg. SRS9.00 17 Seg. SDS3.00 Stress Defect Extent (% LAD)0.00Rest Defect Extent (% LAD)34.40Rev. Defect Extent (% LAD)0.00 Stress Defect Extent (% LCX) 17.50Rest Defect Extent (% LCX)12.50Rev. Defect Extent (% LCX)17.50 Stress Defect Extent (% RCA)3.30Rest Defect Extent (% RCA)0.00Rev. Defect Extent (% RCA)3.30 Stress Defect Extent (% LUIGI)5.00Rest Defect Extent (% LUIGI)18.90Rev. Defect Extent (% LUIGI)5.00 IMPRESSION Comparison of Rest to Stress Regional Wall Thickening: No Change, Normal, Mildly Decreased Wall Thic kening, Moderately Decreased Wall Thickening Conclusion 1. Abnormal baseline EKG but no EKG evidence of stress-induced ischemia. 2. Nuclear imaging shows no reversible ischemia. 3. Nuclear imaging shows a small fixed apical defect most consistent with a technical artifact. 4. Left ventricular systolic function is normal with no regional wall motion abnormalities and an eje ction fraction of > 70%. 5. Moderately low risk Lexiscan nuclear stress test. Signed by : New Lai MD Electronically Approved : 02/11/2021 10:22:31
== END ==
LOC: NM 09:37
PROVIDERS: ATTEND Internal Medicine Cardiovascular Disease
DX: I07.1 Rheumatic tricuspid insufficiency (principal); I48.91 Unspecified atrial fibrillation
CPT/HCPCS: 78452; 93017; 93306; A9500; J2785

== ENCOUNTER → 2021-03-14 | Outpatient (CLI) | payer MEDICARE ==
[~2021-03-14] MED LIST changes: -REGADENOSON 0.4 MG/5 ML DISP.SYRIN. IV ONE
--- NOTE | 2021-03-16 11:52 | RAD ---
DATE: 03/14/2021 EXAM: MAMMO KI SCREENING BILATERAL HISTORY: Screening COMPARISON: Multiple prior exams including 03/11/2020, 03/10/2019, 03/16/2017, 03/15/2016 and other exams This study was interpreted with the benefit of Computerized Aided Detection (CAD). Breast Density: SCATTERED The breast parenchyma shows scattered fibroglandular densities. Breast parenchyma level B. FINDINGS: No mass, suspicious calcification, or architectural distortion in either breast. IMPRESSION: No evidence of malignancy. BI-RADS CATEGORY: 1 NEGATIVE RECOMMENDED FOLLOW-UP: 12M 12 MONTH FOLLOW-UP PQRS compliance statement: Patient information was entered into a reminder system with a target due date for the next mammogram. Mammography is a sensitive method for finding small breast cancers, but it does not detect them all and is not a substitute for careful clinical examination. A negative mammogram does not negate a clinically suspicious finding and should not result in delay in biopsying a clinically suspicious abnormality. "Our facility is accredited by the [employer] Mammography Program."
== END ==
LOC: MAMMO 08:47
PROVIDERS: ATTEND Family Medicine
DX: Z12.31 Encounter for screening mammogram for malignant neoplasm of breast (principal)
CPT/HCPCS: 77063; 77067

== ENCOUNTER 2021-03-28 15:17 | Emergency (ER) | payer MEDICARE ==
[~2021-03-28] VITALS: Ht 167.6 cm; Wt 104.5 kg
[2021-03-28] MEDS ORDERED: cloNIDine HCL 0.1 MG TABLET PO ONE (16:15)
[2021-03-28 16:29] VITALS: BP 185/99
--- NOTE | 2021-03-28 16:50 | PHYS DOC ---
Past Medical History Past Medical History: A-Fib, CHF, Hypertension Past Surgical History: Other Additional Past Surgical Histo: Lt breast lumpectomy Smoking Status: Never Smoker Alcohol Use: None Drug Use: None General Adult EDM: Chief Complaint: EYE PROBLEMS HPI: HPI: Patient is a 76 year old female with history of CHF, hypertension, A. fib, who presents to the ED today to be evaluated for subconjunctival hemorrhage. Patient states she was shopping when her daughter noticed her left eye was red. Patient denies any trauma. Denies any coughing, sneezing, vomiting or any other event that could have triggered this. Denies any vision loss. Review of Systems: Review of Systems: Constitutional: Denies fever or chills. [] Eyes: Reports subconjunctival hemorrhage to the left eye. Denies change in visual acuity. [] HENT: Denies nasal congestion or sore throat. [] Respiratory: Denies cough or shortness of breath. [] Cardiovascular: Denies chest pain or edema. [] GI: Denies abdominal pain, nausea, vomiting, bloody stools or diarrhea. [] : Denies dysuria. [] Musculoskeletal: Denies back pain or joint pain. [] Integument: Denies rash. [] Neurologic: Denies headache, focal weakness or sensory changes. [] Psychiatric: Denies depression or anxiety. [] Heart Score: C/O Chest Pain: N/A Risk Factors: Risk Factors: DM, Current or recent (<one month) smoker, HTN, HLP, family history of CAD, obesity. Risk Scores: Score 0 - 3: 2.5% MACE over next 6 weeks - Discharge Home Score 4 - 6: 20.3% MACE over next 6 weeks - Admit for Clinical Observation Score 7 - 10: 72.7% MACE over next 6 weeks - Early Invasive Strategies Current Medications: Current Medications Medications (Trade) Dose Ordered Sig/Chey Start Time Stop Time Status Last Admin Dose Admin Clonidine HCl (Catapres) 0.1 mg 1X ONCE 03/28/21 16:15 03/28/21 16:16 DC 03/28/21 16:29 0.1 MG Allergies: Allergies: Allergies Coded Allergies Type Severity Reaction Last Updated Verified No Known Drug Allergies 03/30/17 No Physical Exam: PE: Constitutional: Well developed, well nourished, no acute distress, non-toxic appearance. [] HENT: Normocephalic, atraumatic, bilateral external ears normal, oropharynx moist, no oral exudates, nose normal. [] Eyes: PERRLA, EOMI, left conjunctiva with moderate subconjunctival hemorrhage, no discharge. [] Neck: Normal range of motion, no tenderness, supple, no stridor. [] Cardiovascular:Heart rate regular rhythm, no murmur [] Lungs & Thorax: Bilateral breath sounds clear to auscultation [] Abdomen: Bowel sounds normal, soft, no tenderness, no masses, no pulsatile masses. [] Skin: Warm, dry, no erythema, no rash. [] Back: No tenderness, no CVA tenderness. [] Extremities: No tenderness, no cyanosis, no clubbing, ROM intact, no edema. [] Neurologic: Alert and oriented X 3, normal motor function, normal sensory function, no focal deficits noted. [] Psychologic: Affect normal, judgement normal, mood normal. [] Current Patient Data: Vital Signs: Vital Signs Date Time Temp Pulse Resp B/P (MAP) Pulse Ox O2 Delivery O2 Flow Rate FiO2 03/28/21 16:29 95 185/99 03/28/21 15:50 98.1 18 98 Room Air 98.1 EKG: EKG: [] Radiology/Procedures: Radiology/Procedures: [] Course & Med Decision Making: Course & Med Decision Making Pertinent Labs and Imaging studies reviewed. (See chart for details) This is a 76-year-old female patient presenting to the ED today with subconjunctival hemorrhage to the left eye that was noted a couple minutes prior to coming to the ED. Patient denies any trauma. She has history of high blood pressure, blood pressure was 185/99 with HR of 90 in the ED. she states she is due for her evening blood pressure medicine in a couple hours. This appears to be spontaneous subconjunctival hemorrhage. I doubt the blood pressure is the source for her subconjunctival hemorrhage. She was discharged to home. Provided aperture mask etcher for follow-up. Encouraged to take her blood pressure medicine this evening. She has no headache, chest pain or any other symptoms. Dragon Disclaimer: Dragon Disclaimer: This electronic medical record was generated, in whole or in part, using a voice recognition dictation system. Departure Departure Impression: Primary Impression: Subconjunctival hemorrhage of left eye Additional Impression: High blood pressure Qualified Codes: I10 - Essential (primary) hypertension Disposition: HOME / SELF CARE / HOMELESS Condition: STABLE Referrals: SIERRA RIVERA MD (PCP) follow up with your doctor in one walking SUDHEER CASTILLO MD follow up in one week Patient Instructions: Hypertension, Subconjunctival Hemorrhage-Brief Additional Instructions: You were evaluated in the emergency room for subconjunctival hemorrhage. Please follow-up with the provided aperture mask etcher. Ensure you take your blood pressure medicine as ordered by your doctor. Come back to the ED at any point symptoms worsen BINH DIAZ TABLEAU DEVELOPER Mar 28, 2021 16:50
== END 2021-03-28 17:34 | disposition home or self-care (01) ==
LOC: ER 15:17
DX: H11.32 Conjunctival hemorrhage, left eye (principal); I11.0 Hypertensive heart disease with heart failure; I50.9 Heart failure, unspecified; I48.91 Unspecified atrial fibrillation
CPT/HCPCS: 99283